=== PATIENT | male | born 1990 | race Caucasian/White ===

== ENCOUNTER 2023-05-15 14:54 | Outpatient (AMB) | payer OTHER, SELFPAY ==
--- NOTE | 2023-05-15 15:06 | MHC.AM.SUB ---
Intake Intake Visit Reasons: mat intake HPI mat intake HPI Details Patient presents for intake and evaluation Has been in recovery for 6 years [facility] --then they closed and then transferred to [facility] Current suboxone dose 6mg -- 1.5 films of 4mg Has been at this dose for almost 6 years Denies any side effects Health History: PCP: [facility] in [place]. Last physical 1-2 years ago No medications taken daily BH: No BH history Social History: -2 kids -engaged lives in [employer] in [email or web address] Substance Use History: -using percocet relationally age 17 -19 transitioned to heroin -IVDU -one lifetime overdose -cocaine IV and inhalation -denies alcohol or benzodiazepines Treatment History: -[facility] admissions [facility] -[facility] admissions X2 most recent one 7 years ago Medication History: Vivitrol No methadone Review of Systems Const Reports as per HPI and Reports no additional complaints Physical Exam Const General: cooperative and healthy appearing Nutritional Appearance: average body habitus Orientation/consciousness: patient oriented x3 Limitations: no limitations Neuro General: patient oriented x3 Results AMB 14 Panel Urine Drug Screen Urine Marijuana (THC) Positive Last Edit by Alcira Patel NP on 05/15/23 15:55 Urine Cocaine Negative Last Edit by Alcira Patel NP on 05/15/23 15:55 Urine Morphine Negative Last Edit by Alcira Patel NP on 05/15/23 15:55 Urine Methamphetamine Negative Last Edit by Alcira Patel NP on 05/15/23 15:55 Urine Amphetamine Negative Last Edit by Alcira Patel NP on 05/15/23 15:55 Urine Benzodiazepine Negative Last Edit by Alcira Patel NP on 05/15/23 15:55 Urine Barbiturates Negative Last Edit by Alcira Patel NP on 05/15/23 15:55 Urine Methadone Negative Last Edit by Alcira Patel NP on 05/15/23 15:55 Urine Buprenorphine Positive Last Edit by Alcira Patel NP on 05/15/23 15:55 Urine Tricyclic Antidepressant Negative Last Edit by Alcira Patel NP on 05/15/23 15:55 Urine MDMA Negative Last Edit by Alcira Patel NP on 05/15/23 15:55 Urine Oxycodone Negative Last Edit by Alcira Patel NP on 05/15/23 15:55 Urine Phencyclidine Negative Last Edit by Alcira Patel NP on 05/15/23 15:55 Urine Propoxyphene Negative Last Edit by Alcira Patel NP on 05/15/23 15:55 Results Reviewed Results Reviewed: Laboratory Last Values POC Urine Buprenorphine Positive 05/15/23 15:49 POC Urine Morphine Negative 05/15/23 15:49 POC Urine Oxycodone Negative 05/15/23 15:49 POC Urine Methadone Negative 05/15/23 15:49 POC Urine Propoxyphene Negative 05/15/23 15:49 POC Urine Barbiturates Negative 05/15/23 15:49 POC U Tricyclic Antidpr Negative 05/15/23 15:49 POC Urine PCP Negative 05/15/23 15:49 POC Ur Amphetamines Negative 05/15/23 15:49 POC Ur Methamphetamine Negative 05/15/23 15:49 POC Urine MDMA Negative 05/15/23 15:49 POC Ur Benzodiazepine Negative 05/15/23 15:49 POC Urine Cocaine Negative 05/15/23 15:49 POC Ur Marijuana (THC) Positive 05/15/23 15:49 Assessment & Plan Assessment & Plan (1) Opioid use disorder, severe, in sustained remission: Code(s): F11.21 - Opioid dependence, in remission Plan: continue suboxone at current dose refill due next week follow up 3 weeks to stay on 4 weeks rx schedule then q 4 week visits Orders: Orders AMB 14 Panel Urine Drug Screen 05/15/23 Z51.81 - Encounter for therapeutic drug level monitoring Coding Level of Care Code New Pt Level 4 (18796) Diagnoses Opioid use disorder, severe, in sustained remission F11.21
== END 2023-05-15 15:59 | disposition home or self-care (01) ==
PROVIDERS: Visit Provider Nurse Practitioner Psychiatric/Mental Health
DX: F11.21 Opioid dependence, in remission (principal)
CPT/HCPCS: 99204

== ENCOUNTER → 2023-05-15 14:54 | Outpatient (BNVA) | payer OTHER, SELFPAY | PROVIDERS: Visit Provider Nurse Practitioner Family | DX: F11.21 Opioid dependence, in remission (principal) | CPT/HCPCS: 80305; 99202 ==

== ENCOUNTER 2023-06-11 13:01 | Outpatient (AMB) | payer OTHER, SELFPAY ==
[2023-06-11 15:39] VITALS: BP 150/85; PULSE 72; RESP 20; O2SAT 98
--- NOTE | 2023-06-11 15:39 | A.OFFVISCC_ITS ---
Intake Vital Signs 06/11/23 15:39 BP 150/85 H Blood Pressure Location Lt brachial Position Sitting Respiration 20 Pulse 72 Pulse Oximetry (%) 98 Oxygen Delivery Method Room Air Intake Visit Reasons: MAT Visit Allergies No Known Allergies Allergy (Verified 06/11/23 14:43) HPI MAT Visit HPI Details Patient presents for follow up No issues related to current dose (has been stable at this dose for several years) Denies side effects No changes with work or family Review of Systems Const Reports as per HPI and Reports no additional complaints Physical Exam Vital Signs: Last Vital Signs Pulse 72 06/11/23 15:39 Resp 20 06/11/23 15:39 BP 150/85 H 06/11/23 15:39 Pulse Ox 98 06/11/23 15:39 Oxygen Delivery Method Room Air 06/11/23 15:39 Const General: cooperative and healthy appearing Nutritional Appearance: average body habitus Orientation/consciousness: patient oriented x3 Limitations: no limitations Neuro General: patient oriented x3 Assessment & Plan Assessment & Plan (1) Opioid use disorder, severe, in sustained remission: Code(s): F11.21 - Opioid dependence, in remission Plan: * continue suboxone at current dose * follow up 4 weeks. --patient traveling for work and will need to fill rx early. rx sent in with note to fill on 06/17 * labs still not received --follow up Medications: Refilled Suboxone 4-1 mg (buprenorphine-naloxone) 1.5 film sublingually daily 45 ea 0RF NS Coding Level of Care Code Est Pt Level 3 (83922) Diagnoses Opioid use disorder, severe, in sustained remission F11.21
== END 2023-06-11 13:27 | disposition home or self-care (01) ==
PROVIDERS: Visit Provider Nurse Practitioner Psychiatric/Mental Health
DX: F11.21 Opioid dependence, in remission (principal)
CPT/HCPCS: 99213

== ENCOUNTER → 2023-06-11 13:01 | Outpatient (BNVA) | payer OTHER, SELFPAY | PROVIDERS: Visit Provider Nurse Practitioner Psychiatric/Mental Health | DX: F11.20 Opioid dependence, uncomplicated (principal) | CPT/HCPCS: 99212 ==

== ENCOUNTER 2023-07-12 14:14 | Outpatient (AMB) | payer OTHER, SELFPAY ==
--- NOTE | 2023-07-12 14:15 | A.OFFVISCC_ITS ---
Intake Vital Signs 07/12/23 14:19 BP 122/78 Blood Pressure Location Lt radial Position Sitting Pulse 92 Pulse Source Pulse Oximeter Pulse Oximetry (%) 97 Oxygen Delivery Method Room Air Intake Visit Reasons: MAT Visit Intake Note: The patient presents for a mat visit Allergies No Known Allergies Allergy (Verified 07/12/23 14:20) Do you need a note to return to daycare/school/sports/work: No HPI MAT Visit HPI Details Patient presents for follow up Work still going okay Saw PCP last week regarding enlarged lymph nodes--awaiting lab work no issues related to recovery--today [birth year] his birthday, dinner with family later tonight Review of Systems Const Reports as per HPI and Reports no additional complaints Physical Exam Vital Signs: Last Vital Signs Pulse 92 07/12/23 14:19 BP 122/78 07/12/23 14:19 Pulse Ox 97 07/12/23 14:19 Oxygen Delivery Method Room Air 07/12/23 14:19 Const General: cooperative and healthy appearing Nutritional Appearance: average body habitus Orientation/consciousness: patient oriented x3 Limitations: no limitations Neuro General: patient oriented x3 Assessment & Plan Assessment & Plan (1) Opioid use disorder, severe, in sustained remission: Code(s): F11.21 - Opioid dependence, in remission Plan: * continue suboxone at current dose * follow up 6 weeks Medications: Refilled Suboxone 4-1 mg (buprenorphine-naloxone) 1.5 film sublingually daily 32 ea 1RF NS Coding Level of Care Code Est Pt Level 3 (36082) Diagnoses Opioid use disorder, severe, in sustained remission F11.21
[2023-07-12 14:19] VITALS: BP 122/78; PULSE 92; O2SAT 97
== END 2023-07-12 14:36 | disposition home or self-care (01) ==
PROVIDERS: Visit Provider Nurse Practitioner Psychiatric/Mental Health
DX: F11.21 Opioid dependence, in remission (principal)
CPT/HCPCS: 99213

== ENCOUNTER → 2023-07-12 14:14 | Outpatient (BNVA) | payer OTHER, SELFPAY | PROVIDERS: Visit Provider Nurse Practitioner Psychiatric/Mental Health | DX: Z51.81 Encounter for therapeutic drug level monitoring (principal); F11.21 Opioid dependence, in remission | CPT/HCPCS: 99212 ==

== ENCOUNTER 2023-08-30 14:34 | Outpatient (AMB) | payer OTHER, SELFPAY ==
--- NOTE | 2023-08-30 14:35 | MHC.AM.SUB ---
Intake Vital Signs 08/30/23 14:39 BP 124/70 Blood Pressure Location Lt radial Position Sitting Pulse 80 Pulse Source Pulse Oximeter Pulse Oximetry (%) 98 Oxygen Delivery Method Room Air Intake Visit Reasons: MAT Intake Note: The patient presents for a mat visit Compliance Project Manager Required: No Allergies No Known Allergies [No Known Allergies*] Allergy (Unverified 08/30/23 14:40) Do you need a note to return to daycare/school/sports/work: No HPI MAT HPI Details Patient presents for MAT visit He reports he has been in recovery for 7 years, has no concerns Has been tolerating 6mg suboxone daily Doing well overall Review of Systems Const Reports as per HPI Physical Exam Vital Signs: Last Vital Signs Pulse 80 08/30/23 14:39 BP 124/70 08/30/23 14:39 Pulse Ox 98 08/30/23 14:39 Oxygen Delivery Method Room Air 08/30/23 14:39 Const General: cooperative and comfortable Resp Effort & Inspection: normal respiratory effort Psych Appearance: grossly normal Mental Status: mental status grossly normal Speech and movement: Normal speech and movement present Affect: normal affect Attitude: cooperative Assessment & Plan Assessment & Plan (1) Opioid use disorder, severe, in sustained remission: Code(s): F11.21 - Opioid dependence, in remission Plan: -No refill needed at this time -Follow up 6 weeks Coding Level of Care Code Est Pt Level 3 (81980) Diagnoses Opioid use disorder, severe, in sustained remission F11.21
[2023-08-30 14:39] VITALS: BP 124/70; PULSE 80; O2SAT 98
== END 2023-08-30 15:00 | disposition home or self-care (01) ==
PROVIDERS: Visit Provider Nurse Practitioner Family
DX: F11.21 Opioid dependence, in remission (principal)
CPT/HCPCS: 99213

== ENCOUNTER → 2023-08-30 14:34 | Outpatient (BNVA) | payer OTHER, SELFPAY | PROVIDERS: Visit Provider Nurse Practitioner Family | DX: F11.21 Opioid dependence, in remission (principal) | CPT/HCPCS: 99212 ==

== ENCOUNTER 2023-10-22 14:15 | Outpatient (AMB) | payer OTHER, SELFPAY ==
[2023-10-22 14:19] VITALS: BP 138/80; PULSE 89; O2SAT 100
--- NOTE | 2023-10-22 14:19 | A.OFFVISCC_ITS ---
Vital Signs 10/22/23 14:19 BP 138/80 Blood Pressure Location Lt brachial Position Sitting Pulse 89 Pulse Source Pulse Oximeter Pulse Oximetry (%) 100 Oxygen Delivery Method Room Air Intake Visit Reasons: MAT Allergies No Known Allergies [No Known Allergies*] Allergy (Unverified 08/30/23 14:40) HPI HPI MAT: Details: Patient presents for OUD (in remission) treatment follow up Currently prescribed Suboxone 4mg (1.5 films QD) No issues to report tolerating medication work is going well Review of Systems Const Reports as per HPI and Reports no additional complaints Physical Exam Vital Signs: Last Vital Signs Pulse 89 10/22/23 14:19 BP 138/80 10/22/23 14:19 Pulse Ox 100 10/22/23 14:19 Oxygen Delivery Method Room Air 10/22/23 14:19 Const General: cooperative and comfortable Resp Effort & Inspection: normal respiratory effort Psych Appearance: grossly normal Mental Status: mental status grossly normal Speech and movement: Normal speech and movement present Affect: normal affect Attitude: cooperative Assessment & Plan Assessment & Plan (1) Opioid use disorder, severe, in sustained remission: Code(s): F11.21 - Opioid dependence, in remission Category: Medical Plan: * no refill due at this time--will message when he needs it * follow up 6 weeks via telehealth and next appt after that in person * encouraged to call office prior to that if needed
== END 2023-10-22 14:34 | disposition home or self-care (01) ==
PROVIDERS: Visit Provider Nurse Practitioner Psychiatric/Mental Health
DX: F11.21 Opioid dependence, in remission (principal)
CPT/HCPCS: 99213

== ENCOUNTER → 2023-10-22 14:15 | Outpatient (BNVA) | payer OTHER, SELFPAY | PROVIDERS: Visit Provider Nurse Practitioner Psychiatric/Mental Health | DX: F11.20 Opioid dependence, uncomplicated (principal) | CPT/HCPCS: 99212 ==

== ENCOUNTER 2023-12-03 10:57 | Outpatient (AMB) | payer OTHER, SELFPAY ==
--- NOTE | 2023-12-03 11:10 | A.OFFVISCC_ITS ---
Intake Visit Reasons: MAT Tele Allergies No Known Allergies [No Known Allergies*] Allergy (Unverified 08/30/23 14:40) HPI HPI MAT Tele: Details: Patient presents for follow up via telehealth No issues related to suboxone --tolerating medication and denies side effects Still working FT. Has settled on a date for his next November Many activities planned for the summer with family and friends Review of Systems Const Reports as per HPI and Reports no additional complaints Telehealth Telehealth Telehealth Platform: Telephone Location of provider rendering services: practice address Location of patient: address on file Patient Identification confirmed using: Name, : Yes Telehealth method: voice only Patient verbally consented to treatment: Yes Patient verbally consented to billing insurance company: Yes Patient informed of any privacy concerns related to visit: Yes Minutes spent on Phone/Video with Pt.: 15 Assessment & Plan Assessment & Plan (1) Opioid use disorder, severe, in sustained remission: Code(s): F11.21 - Opioid dependence, in remission Category: Medical Plan: * Continue suboxone at current dose * follow up 8 weeks * encouraged to call office prior to that if needed
== END 2023-12-03 11:10 | disposition home or self-care (01) ==
PROVIDERS: Visit Provider Nurse Practitioner Psychiatric/Mental Health
DX: F11.21 Opioid dependence, in remission (principal)
CPT/HCPCS: 99213

== ENCOUNTER → 2023-12-03 10:57 | Outpatient (BNVA) | payer OTHER, SELFPAY | PROVIDERS: Visit Provider Nurse Practitioner Psychiatric/Mental Health ==

== ENCOUNTER 2024-01-29 11:05 | Outpatient (AMB) | payer OTHER, SELFPAY ==
--- NOTE | 2024-01-29 11:35 | A.OFFVISCC_ITS ---
Intake Visit Reasons: MAT Office Allergies No Known Allergies [No Known Allergies*] Allergy (Unverified 08/30/23 14:40) HPI HPI MAT Office: Details: Patient presents for followup Currently prescribed Suboxone 4mg 1.5 films daily Tolerating current dose Was sick last month and vomited a couple of doses, concerned he will be short for his next fill Recovery 8 years in April Review of Systems Const Reports as per HPI and Reports no additional complaints Physical Exam Const General: cooperative and comfortable Psych Appearance: grossly normal Mental Status: mental status grossly normal Speech and movement: Normal speech and movement present Affect: normal affect Attitude: cooperative Assessment & Plan Assessment & Plan (1) Opioid use disorder, severe, in sustained remission: Code(s): F11.21 - Opioid dependence, in remission Category: Medical Plan: * Continue suboxone at current dose * follow up 3 months * encouraged to call office prior to that if needed Medications: Changed From Suboxone 4-1 mg (buprenorphine-naloxone) 1.5 film sublingually daily 45 ea 1RF NS To Suboxone 4-1 mg (buprenorphine-naloxone) 1 film sublingual BID 60 ea 2RF NS Refilled Suboxone 4-1 mg (buprenorphine-naloxone) 1 film sublingual BID 60 ea 2RF NS
== END 2024-01-29 11:36 | disposition home or self-care (01) ==
PROVIDERS: Visit Provider Nurse Practitioner Psychiatric/Mental Health
DX: F11.21 Opioid dependence, in remission (principal)
CPT/HCPCS: 99214

== ENCOUNTER → 2024-01-29 11:05 | Outpatient (BNVA) | payer OTHER, SELFPAY | PROVIDERS: Visit Provider Nurse Practitioner Psychiatric/Mental Health | DX: F11.21 Opioid dependence, in remission (principal); Z51.81 Encounter for therapeutic drug level monitoring | CPT/HCPCS: 99212 ==

== ENCOUNTER 2024-04-22 09:07 | Outpatient (AMB) | payer OTHER, SELFPAY ==
--- NOTE | 2024-04-22 08:40 | MHC.AM.SUB ---
Intake Visit Reasons: MAT Tele Allergies No Known Allergies [No Known Allergies*] Allergy (Unverified 08/30/23 14:40) [facility] MAT Tele: Details: Patient presents for follow up via telehealth Currently prescribed Suboxone 4mg BID Tolerating current dose No issues related to recovery Mass discovered in throat--found to be benign --being followed by ENT Review of Systems Const Reports as per [facility] Telehealth Telehealth Telehealth Platform: Telephone Location of provider rendering services: practice address Location of patient: other Patient Identification confirmed using: Name, : Yes Telehealth method: voice only Patient verbally consented to treatment: Yes Patient verbally consented to billing insurance company: Yes Patient informed of any privacy concerns related to visit: Yes Minutes spent on Phone/Video with Pt.: 15 Assessment & Plan Assessment & Plan (1) Opioid use disorder, severe, in sustained remission: Code(s): F11.21 - Opioid dependence, in remission Category: Medical Plan: continue suboxone at current dose follow up 2 months via telehealth, then next appt in office refill sent Medications: Refilled Suboxone 4-1 mg (buprenorphine-naloxone) 1 film sublingual BID 60 ea 2RF NS
== END 2024-04-22 09:09 | disposition home or self-care (01) ==
LOC: HO.HCC 09:08
PROVIDERS: Visit Provider Nurse Practitioner Psychiatric/Mental Health
DX: F11.21 Opioid dependence, in remission (principal)
CPT/HCPCS: 99213

== ENCOUNTER 2024-07-24 08:49 | Outpatient (AMB) | payer OTHER, SELFPAY ==
--- NOTE | 2024-07-24 08:50 | A.OFFVISCC_ITS ---
Intake Visit Reasons: MAT Visit Allergies No Known Allergies [No Known Allergies*] Allergy (Unverified 08/30/23 14:40) HPI HPI MAT Visit: Details: Patient presents for follow up via telehealth Currently prescribed Suboxone 4mg BID Tolerating dose Denies side effects Some issues with insurance last month, resolved since Review of Systems Const Reports as per HPI and Reports no additional complaints Telehealth Telehealth Telehealth Platform: Telephone Location of provider rendering services: practice address Location of patient: address on file Patient Identification confirmed using: Name, : Yes Telehealth method: voice only Patient verbally consented to treatment: Yes Patient verbally consented to billing insurance company: Yes Minutes spent on Phone/Video with Pt.: 13 Assessment & Plan Assessment & Plan (1) Opioid use disorder, severe, in sustained remission: Code(s): F11.21 - Opioid dependence, in remission Category: Medical Plan: * continue suboxone at current dose * follow up 4 months * will send message via portal when refill is needed
--- OUTSIDE RECORDS SUMMARY | 2024-07-24 09:05 | XMS_ITS | Encounter Summary ---
Author Organization [facility] Address [address] [place] [address] Care Team Providers Care Lead Burner Name Role Phone Rashid Marin MD Primary Care Provider Reason for Referral * Imaging (Routine) - Pending Review Specialty Diagnoses / Procedures Referred By Frank bonner Referred To Contact Radiology Diagnoses Epididymitis, right Lump in the testicle Procedures US Scrotum and Contents Heidi Motley NP [address] [place] [address] Phone: tel: fax: [address] Phone: tel: Referral ID Status Reason Start Date Expiration Date V isits Requested Visits Authorized [id number] Pending Review 07/02/2024 07/02/2025 1 1 Reason for Visit * Imaging (Routine) - Pending Review Specialty Diagnoses / Procedures Referred By Frank bonner Referred To Contact Radiology Diagnoses Epididymitis, right Lump in the testicle Procedures US Scrotum and Contents Heidi Motley NP [address] [place] [address] Phone: tel: fax: [address] Phone: tel: Referral ID Status Reason Start Date Expiration Date V isits Requested Visits Authorized [id number] Pending Review 07/02/2024 07/02/2025 1 1 Encounter Details Date Type Department Care Team (Latest Contact Info) Description 07/02/2024 10:41 AM EST - 07/02/2024 11:59 PM EST Hospital Encounter Radiology Department [address] [phone] Lump in the testicle Discharge Disposition: Home or Self Care Social History Tobacco Use Types Packs/Day Years Used Date Smoking Tobacco: Light Smoker Cigarettes Smokeless Tobacco: Never Alcohol Use Standard Drinks/Week Comments Yes 0 (1 standard drink = 0.6 oz pur e alcohol) Sex and Gender Information Value Date Recorded Sex Assigned at Not on file Legal Sex Male 2:19 PM EST Gender Identity Not on file Sexual Orientation Not on file documented as of this encounter Medications at Time of Discharge buprenorphine-nal oxone (SUBOXONE) 4-1 mg per SL film Place under the tongue. doxycycline (VIBRAMYCIN) 100 mg capsuleIndication s:Epididymitis, right Take 1 capsule (100 mg total) by mouth 2 (two) times a day for 10 days. Take with at least 8 ounces (large glass) of water, do not lie down for 30 minutes after 20 each 07/02/2024 2024 documented as of this encounter Discharge Disposition Disposition Code Departure Means Destination Home or Self Care documented in this encounter Plan of Treatment Not on file documented as of this encounter Procedures Procedure Name Priority Date/Time Associated Diagnosis Comments US SCROTUM AND CONTENTS Routine 07/02/2024 11:10 AM EST Lump in the testicle documented in this encounter Results * US Scrotum and Contents (07/02/2024 11:10 AM EST) Anatomical Region Laterality Modality Body Ultrasound 07/02/2024 11:3 8 AM EST Impressions 07/02/2024 11:43 AM EST Enlarged hypervascular right epididymis consistent with epididymitis. Clinical correlation suggested. -------- FINAL REPORT -------- Dictated By: Fanny Angel Dictated Date: 07/02/2024 11:38 ET Assigned Physician: Fanny Angel Reviewed and Electronically Signed By: Fanny Angel Signed Date: 07/02/2024 11:43 ET Workstation ID: [id number] Transcribed By: Self Edit Transcribed Date: 07/02/2024 11:38 ET Narrative 07/02/2024 11:43 AM EST US SCROTUM AND CONTENTS HISTORY: ??Lump noted in the right scrotum. FINDINGS: ??Both testicles demonstrate normal echotexture. ??The right testicle measures 4.2 x 1.8 x 2.9 cm. The left testicle measures 3.0 x 1.7 x 2.9 cm. ?? The right epididymis is enlarged and demonstrates increased blood flow. There is a 0.2 x 0.1 x 0.1 cm right epididymal head cyst. No large hydrocele is seen. The testicles demonstrate normal symmetric blood flow on Doppler imaging. Procedure Note Fanny Angel MD - 07/02/2024 US SCROTUM AND CONTENTS HISTORY: Lump noted in the right scrotum. FINDINGS: Both testicles demonstrate normal echotexture. The righttesticle measures 4.2 x 1.8 x 2.9 cm. The left testicle measures 3.0 x 1.7x 2.9 cm. The right epididymis is enlarged and demonstrates increased blood flow. There is a 0.2 x 0.1 x 0.1 cm right epididymal head cyst. No large hydrocele is seen. The testicles demonstrate normal symmetricblood flow on Doppler imaging. IMPRESSION: Enlarged hypervascular right epididymis consistent with epididymitis.Clinical correlation suggested. -------- FINAL REPORT -------- Dictated By: Fanny Angel Dictated Date: 07/02/2024 11:38 ET Assigned Physician: Fanny Angel Reviewed and Electronically Signed By: Fanny Angel Signed Date: 07/02/2024 11:43 ET Workstation ID: [id number] Transcribed By: Self Edit Transcribed Date: 07/02/2024 11:38 ET us Heidi Motley REPORTER ANCHOR IMG US PROCEDURES Final Resu lt documented in this encounter Visit Diagnoses Diagnosis Lump in the testicle Other specified disorder of male genital organs documented in this encounter Care Teams Lead Burner Relationship Specialty Start Date End Date Rashid Marin MD [address] [place] [address] PCP - General 07/24/22 documented as of this encounter
--- OUTSIDE RECORDS SUMMARY | 2024-07-24 09:05 | XMS_ITS | Encounter Summary ---
Author Organization [facility] Address [address] [place] [address] Care Team Providers Care Pharmaceutical Process Engineer Name Role Phone Rashid Marin MD Primary Care Provider Reason for Referral * Consultation (Routine) - Authorized Specialty Diagnoses / Procedures Referred By Frank bonner Referred To Contact Urology Diagnoses Lump in the testicle Heidi Motley NP [address] [place] [address] Phone: tel: fax: [facility] [address] [address] Phone: tel: fax: Referral ID Status Reason Start Date Expiration Date Visits Requested Visits Authorized [id number] Authorized Specialty Services Required 07/02/2024 07/02/2025 1 1 * Imaging (Routine) - Pending Review Specialty Diagnoses / Procedures Referred By Contdillon t Referred To Contact Radiology Diagnoses Epididymitis, right Lump in the testicle Procedures US Scrotum and Contents Heidi Motley NP [address] [place] [address] Phone: tel: fax: [address] Phone: tel: Referral ID Status Reason Start Date Expiration Date V isits Requested Visits Authorized [id number] Pending Review 07/02/2024 07/02/2025 1 1 Reason for Visit * Reason Comments Mass Genital area Encounter Details Date Type Department Care Team ([facility] st Contact Info) Description 07/02/2024 10:00 AM EST Office Visit [place] Medicine [facility] [address], [place] [phone] Heidi Motley NP [address], [place] Epididymitis, right (Primary Dx); Lump in the testicle Social History Tobacco Use Types Packs/Day Years [...] on file documented as of this encounter Last Filed Vital Signs Vital Sign Reading Time Taken Comments Blood Pressure 110/64 07/02/2024 10:19 AM EST Pulse 76 07/02/2024 10:19 AM EST Temperature 36.8 ??C (98.2 ??F) 07/02/2024 10:[address] Respiratory Rate 14 07/02/2024 10:19 AM EST Oxygen Saturation 98% 07/02/2024 10:19 AM EST Inhaled Oxygen Concentration - - Weight 73.2 kg (161 lb 6.4 oz) 07/02/2024 10:19 AM EST Height 188 cm (6' 2 ) 07/02/2024 10:19 AM EST Body Mass Index 20.72 07/02/2024 10:19 AM EST documented in this encounter Ordered Prescriptions Prescription Sig Dispense Quantity Refills Last Filled Start Date End Date doxycycline (VIBRAMYCIN) 100 mg capsuleIndications :Epididymitis, right Take 1 capsule (100 mg total) by mouth 2 (two) times a day for 10 days. Take with at least 8 ounces (large glass) of water, do not lie down for 30 minutes after 20 each 07/02/2024 documented in this encounter Progress Notes * Heidi Motley NP - 07/02/2024 10:00 AM EST PATIENT'S PCP: Rashid Marin MD LAST VISIT IN THIS DEPARTMENT: Visit date not found Juventino Flor is a 33 y.o. (: 1990) male who presents today for: Chief Complaint Patient presents with Mass Genital area SUBJECTIVE Juventino is a 33 year old male who present with right scrotum mass. Patient stated he notice the lump/mass 2 days ago. He denied pain, swelling, or penile discharge No fever or chills. No family historyof of testicular cancer. ROS Review of Systems Constitutional: Negative. Gastrointestinal: Negative. Genitourinary: Negative. Negative for penile discharge, penile pain, penile swelling, scrotal swelling and testicular pain. Patient report lump/mass in the right posterior testes. Musculoskeletal: Negative. Skin: Negative. Neurological: Negative. Hematological: Negative. The following portions of the patient's chart were reviewed in this encounter and updated as appropriate: OBJECTIVE Vitals: 07/02/24 1019 BP: 110/64 Pulse: 76 Resp: 14 Temp: 36.8 ??C (98.2 ??F) TempSrc: Temporal SpO2: 98% Weight: 73.2 kg (161 lb 6.4 oz) Height: 1.88 m (74 ) Body mass index is 20.72 kg/m??. Plan is deferred until next visit Allergies Allergen Reactions Cyclobenzaprine Rash Naproxen GI intolerance Active Medication: Current Outpatient Medications Medication Instructions buprenorphine-naloxone (SUBOXONE) 4-1 mg per SL film sublingual doxycycline (VIBRAMYCIN) 100 mg, oral, 2 times daily, Take with at least 8 ounces (large glass) of water, do not lie down for 30 minutes after Physical Exam Vitals reviewed. Constitutional: Appearance: Normal appearance. Abdominal: General: Bowel sounds are normal. Palpations: Abdomen is soft. Genitourinary: Penis: Normal and circumcised. Testes: Right: Mass present. Tenderness, swelling, testicular hydrocele or varicocele not present. Left: Mass, tenderness, swelling, testicular hydrocele or varicocele not present. Epididymis: Right: Normal. Left: Normal. Musculoskeletal: General: Normal range of motion. Skin: General: Skin is warm and dry. Neurological: General: No focal deficit present. Mental Status: He is alert. Mental status is at baseline. Imaging US SCROTUM AND CONTENTS HISTORY: Lump noted in the right scrotum. FINDINGS: Both testicles demonstrate normal echotexture. The right testicle measures 4.2 x 1.8 x 2.9 cm. The left testicle measures 3.0 x 1.7 x 2.9 cm. The right epididymis is enlarged and demonstrates increased blood flow. There is a 0.2 x 0.1 x 0.1 cm right epididymal head cyst. No large hydrocele is seen. The testicles demonstrate normal symmetric blood flow on Doppler imaging. IMPRESSION: Enlarged hypervascular right epididymis consistent with epididymitis. Clinical correlation suggested. Laboratory: CBC: No results found for: WBC , HGB , HCT , MCV , PLT Assessment & Plan Epididymitis, right Patient presents with lump/mass to the right posterior scrotum. No tenderness or pain noted. Patient is sexually active with 1 partner his . Ultrasound completed and showed epididymitis I will start patient on ceftriaxone 500 mg IM injection times once and doxycycline twice daily for 10 days. Discussed results with patient and patient is agreeable to plan. He will return to the office for nurse visit at 230 pm. Orders: US Scrotum and Contents; Future cefTRIAXone (ROCEPHIN) injection 500 mg doxycycline (VIBRAMYCIN) 100 mg capsule; Take 1 capsule (100 mg total) by mouth 2 (two) times a dayfor 10 days. Take with at least 8 ounces (large glass) of water, do not lie down for 30 minutes after Lump in the testicle See above plan Orders: US Scrotum and Contents; Future Ambulatory referral to Urology; Future FOLLOW-UP: Follow up in about 1 year (around 07/02/2025) for Please book with care team. Heidi Motley NP ADULT [address] [phone] Today's documentation was made using voice recognition software.This note may contain grammatical errors secondary to this software. documented in this encounter Plan of Treatment Scheduled Referrals Name Type Priority Associated Diagnoses Order Schedule Ambulatory referral to Urology Outpatient Referral Routine Lump in the testicle 1 Occurrences starting 07/02/2024 until 07/02/2025 documented as of this encounter Results * US Scrotum and [...] Signed Date: 07/02/2024 11:43 ET Workstation ID: [id number] Transcribed By: Self Edit Transcribed Date: 07/02/2024 [...] Signed Date: 07/02/2024 11:43 ET Workstation ID: [id number] Transcribed By: Self Edit Transcribed Date: 07/02/2024 11:38 ET us Heidi Motley [employer] CERTIFIED INTERNETWORK EXPERT IMG US PROCEDURES Final Resu lt documented in this encounter Visit Diagnoses Diagnosis Epididymitis, right- Primary Unspecified orchitis and epididymitis Lump in the testicle Other specified disorder of male genital organs Lump in the testicle Other specified disorder of male genital organs documented in this encounter Orders Medications Ordered That Sameer ht Not Have Been Administered Count Last Ordered Date First Ordered Date cefTRIAXone (ROCEPHIN) injection 500 mg 1 0 07/02/2024 documented in this encounter Care Teams Pharmaceutical Process Engineer Relationship Specialty Start Date End Date Rashid Marin MD [address] [place] [address] PCP - General 07/24/22 documented as of this encounter
--- OUTSIDE RECORDS SUMMARY | 2024-07-24 09:05 | XMS_ITS | Encounter Summary ---
Author Organization [facility] Address [address] [place] [address] Care Team Providers Care Cooler Supervisor Name Role Phone Rashid Marin MD Primary Care Provider Reason for Visit * Reason Onset Date Comments provider call back 07/02/2024 Encounter Details Date Type Department Care Team (Late st Contact Info) Description 07/02/2024 Telephone Adult Medicine [facility] [address] [place] [phone] Rashid Marin MD [address] [place], [place] provider call back Social History Tobacco Use Types Packs/Day Years [...] on file documented as of this encounter Progress Notes * Heidi Motley NP - 07/08/2024 6:21 PM EST Attempt to call the patient back. Left message for patient to call the office back. * Therese Wolf - 07/08/2024 10:32 AM EST Patient calling again for a provider call back hugh * Ju Ramirez MA - 07/03/2024 9:55 AM EST Pt called again today, states he was told to come back yesterday for an injection and did, but has questions as to the dx of Epididymitis. Would like for provider to call back. * Letty Shah - 07/02/2024 2:41 PM EST Patient would like to speak with Consuelo Motley. He says he has a couple questions for her documented in this encounter Plan of Treatment Not on file documented as of this encounter Visit Diagnoses Not on filedocumented in this encounter Care Teams Cooler Supervisor Relationship Specialty Start Date End Date Rashid Marin MD [address] [place] [address] PCP - General 07/24/22 documented as of this encounter
--- OUTSIDE RECORDS SUMMARY | 2024-07-24 09:05 | XMS_ITS | Clinical Summary ---
Author Organization [address] Address [address] [place] [phone] Phone Care Team Providers Care Global Account Manager Name Role Phone Rashid Marin MD Primary Care Provider Allergies Active Allergy Reactions Criticality Noted Date Comments Cyclobenzaprine Rash Medium 03/26/2014 Naproxen GI intolerance Medium 03/26/2014 Medications buprenorphine-n aloxone (SUBOXONE) 4-1 mg per SL film Place under the tongue. Active doxycycline (VIBRAMYCIN) 100 mg capsuleIndicati ons:Epididymiti s, right Take 1 capsule (100 mg total) by mouth 2 (two) times a day for 10 days. Take with at least 8 ounces (large glass) of water, do not lie down for 30 minutes after 20 each 07/02/2024 07/12/19 25 Hospital, Clinic, or Other Facility Administered Medication Ordered Dose Route Frequency Start Date End Date Status cefTRIAXone (ROCEPHIN) injection 500 mgIndications:Epididymitis, right 500 mg IM Once 07/02/2024 10/30/2024 Active Active Problems Problem Noted Date Diagnosed Date Gastroesophageal reflux disease without esophagi tis 04/01/2019 Anxiety 02/16/2019 Opioid dependence 02/14/2019 Overview (05/28/2024): Follow with Suboxone treatment program since 2018 Lumbar disc herniation 04/23/2014 Encounters Date Type Department Care Team Description 07/02/2024 10:41 AM EST - 07/02/2024 11:59 PM EST Hospital Encounter Radiology Department - [address] [phone] Lump in the testicle Discharge Disposition: Home or Self Care 07/02/2024 10:00 AM EST Office Visit Adult Medicine [address] [phone] Heidi Motley NP Epididymitis, right (Primary Dx); Lump in the testicle 07/02/2024 Telephone Adult [address] [phone] Rashid Marin MD provider call back from Last 3 Months Immunizations Name Administration Dates Next Due Tdap Tetanus diptheria acell ular pertussis (Boostrix; Adacel) 7yo and older 12/14/2013 Surgical History Surgery Date Site/Laterality Comments OTHER SURGICAL HISTORY 06/11/13 PROCEDURE: [place] UNLISTED PROCEDURE SPINE; COMMENT: L5-S1 disectomy Medical History Medical History Date Comments Lumbar radiculopathy 04/23/2014 DX:Lumbar r adiculopathy Lumbar disc herniation 04/23/2014 DX:Lumbar disc herniation History of lumbosacral spine surgery 06/16/2014 DX:History of lumbosacral spine surgery Family History Medical History Relation Name Comments Heart attack Maternal Grandfather Relation Name Status Comments Brother Alive Father Alive Maternal Grandfather Mother Alive Sister Alive Social History Tobacco Use Types Packs/Day Years Used Date Smoking Tobacco: Light Smoker Cigarettes Smokeless Tobacco: Never Alcohol Use Standard Drinks/Week Comments Yes 0 (1 standard drink = 0.6 oz pur e alcohol) Sex and Gender Information Value Date Recorded Sex Assigned at Not on file Legal Sex Male 2:19 PM EST Gender Identity Not on file Sexual Orientation Not on file Obstetrics History Last Filed Vital Signs Vital Sign Reading [...] Mass Index 20.72 07/02/2024 10:19 AM EST Plan of Treatment Health Maintenance Due Date Last Done Comments Hepatitis B Vaccines (1 of 3 - 19+ 3-dose series) 2007 Pneumococcal Vaccine: Pediat rics (0 to 5 Years) and At-Risk Patients (6 to 64 Years) (1 of 2 - PCV) 2007 HIV Screening 05/19/2022 Hepatitis C Screening 05/19/2022 Social Influencers of Health Screening 05/19/2022 DTaP,Tdap,and Td Vaccines (2 - Td or Tdap) 12/15/2023 12/14/2013 COVID-19 Vaccine ( - 2023-2 5 season) 2024 Influenza Vaccine (#1) 2024 Depression Screening 07/05/2024 07/05/2023 Cholesterol Screening (Lipid Panel) 08/07/2027 08/07/2022 HIB Vaccines Aged Out No longer eligi ble based on patient's age to complete this topic HPV Vaccines Aged Out No longer eligi ble based on patient's age to complete this topic Hepatitis A Vaccines Aged Out No long er eligible based on patient's age to complete this topic IPV Vaccines Aged Out No longer eligi ble based on patient's age to complete this topic MMR Vaccines Aged Out No longer eligi ble based on patient's age to complete this topic Meningococcal ACWY Vaccine Aged Out N o longer eligible based on patient's age to complete this topic Meningococcal B Vacine Aged Out No lo nger eligible based on patient's age to complete this topic RSV Immunization Patients Un kathy 20 months Aged Out No longer eligible b ased on patient's age to complete this topic Varicella Vaccines Aged Out No longer eligible based on patient's age to complete this topic Procedures Procedure Name Priority Date/Time Associated Diagnosis Comments US SCROTUM AND CONTENTS Routine 07/02/2024 11:10 AM EST Lump in the testicle HM DEPRESSION SCREENING Routine 07/05/2023 LIPID PANEL Routine 08/07/2022 from Last 3 Months or Most Recently Relevant to Health Maintenance Results * US Scrotum and Contents (07/02/2024 [...] Signed Date: 07/02/2024 11:43 ET Workstation ID: [id number] Transcribed By: Self Edit Transcribed Date: 07/02/2024 [...] suggested. -------- FINAL REPORT -------- Dictated By: Fnany Angel Dictated Date: 07/02/2024 11:38 ET Assigned Physician: Fanny Angel Reviewed and Electronically Signed By: Fanny Angel Signed Date: 07/02/2024 11:43 ET Workstation ID: [id number] Transcribed By: Self Edit Transcribed Date: 07/02/2024 11:38 ET Heidi Motley SUPERINTENDENT METERS IMG US PROCEDURES Final Resu lt * Depression Screening (07/05/2023) Pathologist [facility] Depression Screening abstracted Historical Provider HEALTH MAINTENANCE Final Result * (ABNORMAL) Lipid panel (08/07/2022) LDL/HDL Ratio 3 0 - 4 Triglycerides 105 0 - 150 mg/dL Cholesterol 92 0 - 200 mg/dL HDL 29(A) >=40 mg/dL LDL Cholesterol 42 0 - 100 mg/dL Blood Venous blood specimen / Unknown Historical Provider LAB BLOOD ORDERABLES Kym l Result from Last 3 Months or Most Recently Relevant to Health Maintenance Insurance [facility] Care Teams Global Account Manager Relationship Specialty Start Date End Date Rashid Marin MD [address] [place] [address] PCP - General 07/24/22
--- OUTSIDE RECORDS SUMMARY | 2024-07-24 09:05 | XMS_ITS | Data Portability ---
Author Organization [place] [facility], [facility] Address [address] [place] [phone] Care Team Providers Care Rag Willow Operator Name Role Phone EDWINA SMITH Primary Care Provider Assessment Encounter Date Assessment Date Assessment LastModified by Organization Details LastModified Time 03/20/2024 03/20/2024 Concerning mass right base of tongue noted on CT study shows approximately 2-1/2 cm mass in the base of tongue without any cervical adenopathy. Fiberoptic laryngoscopy today shows mild lingual tonsil hypertrophy that is symmetric without any obvious asymmetry or mass. Nasopharynx with minimal adenoid tissue in the midline . onset was associated with a dental infection that was treated with antibiotics shortly after his symptoms developed. He does feel some improvement in his symptoms over time Discussed differential diagnosis of benign as well as malignant conditions. Recommend proceed with [facility] laryngoscopy with biopsy vs repeat exam in office in a month. Patient is agreeable to following up in 1 month for repeat fiberoptic laryngoscopy. [email or web address] Not available 03/20/2024 11:22:14 04/08/2024 04/08/2024 Base of tongue biopsies are benign. Fiberoptic laryngoscopy was also unremarkable previously. No specific intervention is needed, he may follow-up as needed [email or web address] Not available 04/08/2024 11:59:28 Plan of Treatment Reminders Order Date Submit Date Provider Last Modified By Organization Details Last Modified Time Details Appointments None record ed. Lab None record ed. Referral None record ed. Procedures None record ed. Surgeries None record ed. Imaging None record ed. Medication Orders None record ed. Patient TargetsNo targets recorded. Patient InstructionsNo instructions recorded. Reason for Referral None Reported. Results Created Date Observation Date Name Description Value Unit Range Abnormal Flag Note LastModifiedBy Organization Detail LastModifiedTime 03/18/2003/13/2024 CT, neck, soft tissu e, w/ contr ast No observ ation record ed. [email or web address] Not Available 03/18 10:54:03 03/18/2002/24/2024 XR, neck, soft tissu e No observ ation record ed. [email or web address] Not Available 03/18 10:54:59 04/02/2003/31/2024 clini kristina photo * No observ ation record ed. [email or web address] Not Available 03/11 08:41:53 Result Notes None recorded. 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 Procedures Surgical History Date Name Laterality Status Provider Name and Address Organization Details Recorded Time 03/31/20 Laryngoscopy w/bx & op scope completed KRISTEL TATE MD [address] [place] [address], [phone], [facility] 03/31/2024 15:34:23 03/20/20 FOL_DP completed DOLORES CABRERA MD [address] [place] [address],[address], [phone], [facility] 03/20/2024 11:18:37 Imaging Results Imaging Date Name Status LastModified by Organiz atcounts include 234 beds at the [facility] Details LastModified Time 03/13/2024 CT, neck, soft tissue, w/ contrast completed [email or web address] Information not available 03/18/2024 10:54:03 02/24/2024 XR, neck, soft tissue completed [email or web address] Information not available 03/18/2024 10:54:59 03/31/2024 clinical photo* completed [email or web address] Information not available 04/02/2024 08:41:53 Procedure Notes None recorded. Medical Equipment None Reported. Allergies No known drug allergies Medications Name Sig Start Date Stop Date Status Note LastModified by Organization Details LastModified Time ibuprofen 800 mg tablet 03/20 completed Not Available Not Available Not Available nicotine (polacrilex ) 4 mg gum 03/20 completed Not Available Not Available Not Available amoxicillin 875 mg-potassiu m clavulanate 125 mg tablet active Not Available Not Available Not Available Suboxone 4 mg-[address] 1 film every day by sublingua l route. active Not Available Not Available No t Available Vitals Date Recorded Body height Body mass index (BMI) Body weight Provider Name and Address Organization Details Last Updated DateTime 03/20/2024 187.96 cm 20.8 kg/m2 10320.96 g Ashley Reese [facility] 03/20/2024 10:55:48 Date Recorded Body height Body mass index (BMI) Body weight Provider Name and Address Organization Details Last Updated DateTime 04/08/2024 187.96 cm 20.8 kg/m2 09081.96 g Patricia Castellanos [facility] 04/08/2024 11:41:18 Social History None recorded. Functional Status None recorded. Mental Status None recorded. Family History Nothing Reported. Medical History No medical history recorded. 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 76032457 D37.02 Health Concerns Section Related Observation LastModified by Organization Detai ls LastModified Time None Recorded Concern Status LastModified by Organization Details LastModified Time None Recorded Advance Directives Directive None Recorded Payers Encounter Date Sequence Insurance Name Policy Number Policy West Covered Member ID West Member ID Guarantor Name 03/20/2024 1 [facility] (MEDICAID REPLACEMENT - HMO) [employer] Juventino A Coulombe [id number] Juventino A Coulombe 04/08/2024 1 [facility] (MEDICAID REPLACEMENT - HMO) [employer] Juventino A Coulombe [id number] Juventino A Coulombe Notes Date Note Type Note Provider Name and Address Organization Details Recorded Time 03/20/2024 text/html escorted by james cameron tongue massOnset early February right-sided globus sensationwas associated with a tooth infection and being treated with PO abxDenies dysphagia for liquids and solidsTobacco 1 pack/daydenies hemoptysishas baseline anxiety 03/13/2024 CT neck with IV and oral contrast at [facility]23 x 24 x 12 mm lobulated enhancing mass posterior base of tongue, prominent adenoid tissue. 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23 x 24 x 12 mm lobulated enhancing mass posterior base of tongue, prominent adenoid tissue. 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
== END 2024-07-24 09:26 | disposition home or self-care (01) ==
LOC: HO.HCC 08:49
PROVIDERS: Visit Provider Nurse Practitioner Psychiatric/Mental Health
DX: F11.21 Opioid dependence, in remission (principal)
CPT/HCPCS: 99213

== ENCOUNTER → 2024-07-24 08:49 | Outpatient (BNVA) | payer OTHER, SELFPAY | PROVIDERS: Visit Provider Nurse Practitioner Psychiatric/Mental Health ==

== ENCOUNTER 2024-08-05 08:54 | Outpatient (AMB) | payer OTHER, SELFPAY ==
--- NOTE | 2024-08-05 08:50 | A.OFFVISCC_ITS ---
Intake Visit Reasons: MAT Allergies No Known Allergies [No Known Allergies*] Allergy (Unverified 08/30/23 14:40) HPI HPI MAT: Details: Patient presents for follow up via telehealth to discuss transitioning to Sublocade Discussed injection, frequency, side effects, expected outcomes Patient would like to use injection as a way to taper off of buprenorphine Review of Systems Const Reports as per HPI and Reports no additional complaints Telehealth Telehealth Telehealth Platform: Telephone Location of provider rendering services: practice address Location of patient: address on file Patient Identification confirmed using: Name, : Yes Telehealth method: voice only Patient verbally consented to treatment: Yes Patient verbally consented to billing insurance company: Yes Minutes spent on Phone/Video with Pt.: 15 Assessment & Plan Assessment & Plan (1) Opioid use disorder, severe, in sustained remission: Code(s): F11.21 - Opioid dependence, in remission Category: Medical Plan: * continue suboxone at current dose * rx for injeciton send to specialty pharmacy--will start at 100mg. Aware that he can transition to 300mg if needed * RN to schedule injection when it arrives
--- OUTSIDE RECORDS SUMMARY | 2024-08-05 09:43 | XMS_ITS | Encounter Summary ---
Author Organization [facility] Address [address] [place] [address] Care Team Providers Care Getter Welder Name Role Phone Rashid Marin MD Primary Care Provider Reason for Visit * Reason Onset Date Comments provider call back 07/02/2024 Encounter Details Date Type Department Care Team (Late st Contact Info) Description 07/02/2024 Telephone Adult Medicine [facility] [address] [place] [address] Rashid Marin MD [address], [place] provider call back Social History Tobacco [...] on filedocumented in this encounter Care Teams Getter Welder Relationship Specialty Start Date End Date Rashid Marin MD [address] [place] [address] PCP - General 07/24/22 documented as of this encounter
--- OUTSIDE RECORDS SUMMARY | 2024-08-05 09:43 | XMS_ITS | Data Portability ---
Author Organization [place] [facility], Allergy Address [address] [place] [phone] Care Team Providers Care Remote Sensing Engineer Name Role Phone EDWINA SMITH Primary Care [...] contr ast No observ ation record ed. [email or web address] Not Available 03/18 10:54:03 03/18/2002/24/2024 XR, neck, soft tissu e No observ ation record ed. [email or web address] Not Available 03/18 10:54:59 04/02/2003/31/2024 clini kristina photo * No observ ation record ed. [email or web address] Not Available 03/11 08:41:53 Result Notes None recorded. 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 Procedures Surgical History Date Name Laterality Status Provider Name and Address Organization Details Recorded Time 03/31/20 Laryngoscopy w/bx & op scope completed KRISTEL TATE MD [address] [place] [address], [phone], [facility] 03/31/2024 15:34:23 03/20/20 FOL_DP completed DOLORES CABRERA MD [address] [place] [address],[address], [phone], [facility] 03/20/2024 11:18:37 Imaging Results Imaging Date Name Status LastModified by [facility] Details LastModified Time 03/13/2024 CT, neck, soft tissue, w/ contrast completed [email or web address] Information not available 03/18/2024 10:54:03 02/24/2024 XR, neck, soft tissue completed [email or web address] Information not available 03/18/2024 10:54:59 03/31/2024 clinical [...] Updated DateTime 03/20/2024 187.96 cm 20.8 kg/m2 19730.96 g Ashley Reese [facility] 03/20/2024 10:55:48 Date Recorded Body height Body mass index (BMI) Body weight Provider Name and Address Organization Details Last Updated DateTime 04/08/2024 187.96 cm 20.8 kg/m2 45829.96 g Patricia Castellanos [facility] 04/08/2024 11:41:18 Social History None recorded. Functional Status None recorded. Mental Status None recorded. Family History Nothing Reported. Medical History No medical history recorded. 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 84174632 D37.02 Health Concerns Section Related Observation LastModified by Organization Detai ls LastModified Time None Recorded Concern Status LastModified by Organization Details LastModified Time None Recorded Advance Directives Directive None Recorded Payers Encounter Date Sequence Insurance Name Policy Number Policy West Covered Member ID West Member ID Guarantor Name 03/20/2024 1 [facility] (MEDICAID REPLACEMENT - HMO) [place] Juventino A Coulombe [id number] Juventino A Coulombe 04/08/2024 1 [facility] (MEDICAID REPLACEMENT - HMO) [employer] Juventino A Coulombe [id number] Juventino A Coulombe Notes Date Note Type Note Provider Name and Address Organization Details Recorded Time 03/20/2024 text/html escorted by james cameron tongue massOnset early February right-sided globus sensationwas associated with a tooth infection and being treated with PO abxDenies dysphagia for liquids and solidsTobacco 1 pack/daydenies hemoptysishas baseline anxiety 03/13/2024 CT neck with IV and oral contrast at [facility]23 x 24 x 12 mm lobulated enhancing mass posterior base of tongue, prominent adenoid tissue. No adenopathy.02/24/2024 x-ray neck at [facility] normal work - quality systems engineer, [employer] DOLORES CABRERA MD [address] [place] [address], [phone], [place] [facility] 03/20/2024 11:22:30 04/08/2024 text/html escorted by james of tongue mass 03/31/24 microDL bx, [facility], [facility] - benign left and right base of tongue 03/13/2024 CT neck with IV and oral contrast at [facility]23 x 24 x 12 mm lobulated enhancing mass posterior base of tongue, prominent adenoid tissue. No adenopathy.02/24/2024 x-ray neck at [facility] normal work - quality systems engineer, [employer] DOLORES CABRERA MD [address] [place] [address],[address], [address], [place] [facility] 04/08/2024 11:59:43
--- OUTSIDE RECORDS SUMMARY | 2024-08-05 09:43 | XMS_ITS | Clinical Summary ---
Author Organization [address] Address [address] [place] [phone] Phone Care Team Providers Care Business Consultant Name Role Phone Rashid Marin MD Primary [...] PM EST Hospital Encounter Radiology Department - [address] [phone] Lump in the testicle Discharge Disposition: Home or Self Care 07/02/2024 10:00 AM EST Office Visit Adult Medicine [address] [phone] Heidi Motley NP Epididymitis, right (Primary Dx); Lump in the testicle 07/02/2024 Telephone Adult [address] [phone] Rashid Marin MD provider call back from Last 3 Months Immunizations Name Administration Dates Next Due Tdap Tetanus diptheria acell ular pertussis (Boostrix; Adacel) 7yo and older 12/14/2013 Surgical History Surgery Date Site/Laterality Comments OTHER SURGICAL HISTORY 06/11/13 PROCEDURE: [place] UNLISTED PROCEDURE SPINE; COMMENT: L5-S1 disectomy Medical [...] Signed Date: 07/02/2024 11:43 ET Workstation ID: [id number] Transcribed By: Self Edit Transcribed Date: 07/02/2024 [...] Signed Date: 07/02/2024 11:43 ET Workstation ID: [id number] Transcribed By: Self Edit Transcribed Date: 07/02/2024 11:38 ET Heidi Motley ACCELERATOR OPERATOR IMG US PROCEDURES Final Resu lt * Depression Screening (07/05/2023) Pathologist [facility] Depression Screening abstracted Historical Provider HEALTH MAINTENANCE [...] Most Recently Relevant to Health Maintenance Insurance [facility] Care Teams Business Consultant Relationship Specialty Start Date End Date Rashid Marin MD [address] [place] [address] PCP - General 07/24/22
== END 2024-08-05 09:24 | disposition home or self-care (01) ==
PROVIDERS: Visit Provider Nurse Practitioner Psychiatric/Mental Health
DX: F11.21 Opioid dependence, in remission (principal)
CPT/HCPCS: 99213

== ENCOUNTER → 2024-08-05 08:54 | Outpatient (BNVA) | payer OTHER, SELFPAY | PROVIDERS: Visit Provider Nurse Practitioner Psychiatric/Mental Health ==

== ENCOUNTER 2024-08-28 12:50 | Outpatient (AMB) | payer OTHER, SELFPAY ==
[2024-08-28 12:59] VITALS: BP 124/80; PULSE 95; O2SAT 98; BMI 19.9
--- NOTE | 2024-08-28 12:59 | AM.OFFVISNUR ---
Vital Signs 08/28/24 12:59 Height 6 ft 2 in Weight 70.307 kg BMI 19.9 BP 124/80 Blood Pressure Location Lt brachial Position Sitting Pulse 95 Pulse Source Pulse Oximeter Pulse Oximetry (%) 98 Oxygen Delivery Method Room Air Intake Visit Reasons: Sublocade Injection Allergies No Known Allergies [No Known Allergies*] Allergy (Verified 08/28/24 12:59) Coding
--- NOTE | 2024-08-28 14:04 | AM.OFFVISNUR ---
Vital Signs 08/28/24 12:59 Height 6 ft 2 in Weight 70.307 kg BMI 19.9 BP 124/80 Blood Pressure Location Lt brachial Position Sitting Pulse 95 Pulse Source Pulse Oximeter Pulse Oximetry (%) 98 Oxygen Delivery Method Room Air Intake Visit Reasons: Sublocade Injection Allergies No Known Allergies [No Known Allergies*] Allergy (Verified 08/28/24 12:59) Nursing Note Juventino presented in office to receive his first Sulocade injection. Dosing questions were relayed to provider Maribell Norwood regarding equivalency of 100 mg injection dosage to 3 mg Suboxone and answered. Injection was given without event. Juventino was educated on signs and symptoms of infection and bridging his dose if necessary towards the next injection. Juventino remained in office for 15 minuted post injection to monitor for any adverse reaction, none were observed, he will follow up with the office with any questions or concerns. Office Meds Sublocade 300 mg/1.5 mL solution,extended release subcutaneous syringe Performing Provider: Maribell Norwood CNP Performing Location: [facility] Documented (not given) by: Cyn Laguna RN on 08/28/24 13:27 Reason Not Given: Not Medically Necessary Comments: Pt present for initial Sublocade injection. No issues with injection. Reviewed signs and symptoms of infection to observe for (pain, swelling, discharge, fever, redness),reminded to call the office with any further questions. Follow up in 4 weeks for next injection. Patient verbalized understanding. Remained in office for 15 minutes post injection to monitor for adverse reaction, none noted. Sublocade 100 mg/0.5 mL solution,extended release subcutaneous syringe Performing Provider: Maribell Norwood CNP Performing Location: [facility] Administered by: Cyn Laguna RN on 08/28/24 13:30 Dose Route Admin Location Dispensed Lot Number Expiration Date [facility] Content Checker 100 mg subcut RLQ 0.5 mL [id number] 09/07/25 [address]-6 [employer]. Comments: Pt present for initial Sublocade injection. No issues with injection. Reviewed signs and symptoms of infection to observe for (pain, swelling, discharge, fever, redness),reminded to call the office with any further questions. Follow up in 4 weeks for next injection. Patient verbalized understanding. Remained in office for 15 minutes post injection to monitor for adverse reaction, no adverse reaction noted. Assessment & Plan Assessment & Plan Orders: Orders AMB Buprenorphine Injection Today F1.21 - Opioid dependence, in remission AMB Buprenorphine Injection Today F1.21 - Opioid dependence, in remission Medications: New Sublocade ER (buprenorphine) 100 mg (0.5 mL) subcut ONCE 0.5 mL 0RF NS F1.21 - Opioid dependence, in remission Coding
== END 2024-08-28 13:53 | disposition home or self-care (01) ==
LOC: HO.HCC 12:50
DX: F11.21 Opioid dependence, in remission (principal)

== ENCOUNTER → 2024-08-28 12:50 | Outpatient (BNVA) | payer OTHER, SELFPAY | DX: F11.21 Opioid dependence, in remission (principal) | CPT/HCPCS: 96372; Q9991 ==

== ENCOUNTER 2024-09-23 12:39 | Outpatient (AMB) | payer OTHER, SELFPAY ==
--- NOTE | 2024-09-23 12:57 | AM.OFFVISNUR ---
Intake Visit Reasons: Sublocade Allergies No Known Allergies [No Known Allergies*] Allergy (Verified 08/28/24 12:59) Nursing Note Patient Presents for Sublocade Injection. Current Dose 100mg . Given in the LUQ with no noted or stated complications. Denies any issues with previous injection. Denies symptoms, and denies any break through cravings. Last injection was patients first, he states he would like to stretch his next injection 5 weeks and eventually get to 6 weeks. He understands to call the office if he needs the injection earlier. it help desk associate and [place] were alerted of this as well. Office Meds Sublocade 100 mg/0.5 mL solution,extended release subcutaneous syringe Performing Provider: Angeline Xiao MD Performing Location: [facility] Administered by: Orquidea Narvaez RN on 09/23/24 12:59 Dose Route Admin Location Dispensed Lot Number Expiration Date [facility] Button Attaching Machine Operator 100 mg subcut 0.5 mL [id number] 08/08/25 [address]-6 [email or web address]. Assessment & Plan Assessment & Plan Orders: Orders AMB Buprenorphine Injection - Patient Supplied Today F11.90 - Opioid use, unspecified, uncomplicated Medications: New Sublocade ER (buprenorphine) 100 mg (0.5 mL) subcut ONCE 0.5 mL 0RF NS F11.90 - Opioid use, unspecified, uncomplicated Coding
--- OUTSIDE RECORDS SUMMARY | 2024-09-23 14:58 | XMS_ITS | Clinical Summary ---
Author Organization [facility] [address] [place] [address] [place] [address] Phone Care Team Providers Care Neurology Epilepsy Physician Name Role Phone Rashid Marin MD Primary Care Provider Allergies Active Allergy Reactions Criticality Noted Date Comments Cyclobenzaprine Rash Medium 03/26/2014 Naproxen GI intolerance Medium 03/26/2014 Medications buprenorphine-na loxone (SUBOXONE) 4-[address] mg [address] under the tongue. Active Hospital, Clinic, or Other Facility Administered Medication Ordered Dose Route Frequency Start Date End Date Status cefTRIAXone (ROCEPHIN) injection 500 mgIndications:Epididymitis, right 500 mg IM Once 07/02/2024 10/30/2024 Active Active Problems Problem Noted Date Diagnosed Date Gastroesophageal reflux disease without esophagi tis 04/01/2019 Anxiety 02/16/2019 Opioid dependence ([facility] V24, [facility] V28) 12/2018 Overview (05/28/2024): Follow with Suboxone treatment program since 2018 Lumbar disc herniation 04/23/2014 Encounters Date Type Department Care Team Description 08/19/2024 8:15 AM EDT Office Visit Adult Medicine [address] [phone] Stevenson Naranjo PA Left upper quadrant abdominal pain (Primary Dx) 08/18/2024 Telephone Adult Medicine [address] [phone] Rashid Marin MD Heartburn; Spasms (Minor area chest and upper abdominal ) 07/02/2024 10:41 AM EST - 07/02/2024 11:59 PM EST Hospital Encounter Radiology Department - [address] [phone] Lump in the testicle Discharge Disposition: Home or Self Care 07/02/2024 10:00 AM EST Office Visit Adult Medicine [address] [phone] Heidi Motley NP Epididymitis, right (Primary Dx); Lump in the testicle 07/02/2024 Telephone Adult Medicine [address] [phone] Rashid Marin MD provider call back from Last 3 Months Immunizations Name Administration Dates Next Due Tdap Tetanus diptheria acell ular pertussis (Boostrix; Adacel) 7yo and older 12/14/2013 Surgical History Surgery Date Site/Laterality Comments OTHER SURGICAL HISTORY 06/11/13 PROCEDURE: [place] UNLISTED PROCEDURE SPINE; COMMENT: L5-S1 disectomy Medical [...] Sign Reading Time Taken Comments Blood Pressure 120/68 08/19/2024 8:18 AM EDT Pulse 88 08/19/2024 8:18 AM EDT Temperature 36.5 ??C (97.7 ??F) 08/19/2024 8:18 AM ED T Respiratory Rate 14 08/19/2024 8:18 AM EDT Oxygen Saturation 98% 08/19/2024 8:18 AM EDT Inhaled Oxygen Concentration - - Weight 72.6 kg (160 lb) 08/19/2024 8:18 AM EDT Height 188 cm (6' 2 ) 08/19/2024 8:18 AM EDT Body Mass Index 20.54 08/19/2024 8:18 AM EDT Plan of Treatment Health Maintenance Due Date Last Done Comments Hepatitis B Vaccines (1 of 3 - 19+ 3-dose series) 2007 Pneumococcal Vaccine: Pediatrics (0 to 5 Years) and At-Risk Patients (6 to 64 Years) (1 of 2 - PCV) 2007 HIV Screening 05/19/2022 Hepatitis C Screening 05/19/2022 Social Influencers of Health Screening 05/19/2022 DTaP,Tdap,and Td Vaccines (2 - Td or Tdap) 12/15/2023 12/14/2013 COVID-19 Vaccine (1 - 2023-2 5 season) 2024 Depression Screening 07/05/2024 07/05/2023 Influenza Vaccine (Season Ended) 2025 Cholesterol Screening (Lipid Panel) 08/19/2029 08/19/2024, 08/07/2022 HIB Vaccines Aged Out No longer [...] age to complete this topic Meningococcal B Vaccine Aged Out No l onger eligible based on patient's age to complete this topic RSV Immunization Patients Under 20 months Aged Out No longer eligible b ased on patient's age to complete this topic Varicella Vaccines Aged Out No longer eligible based on patient's age to complete this topic Procedures Procedure Name Priority Date/Time Associated Diagnosis Comments COMPLETE BLOOD COUNT Routine 08/19/2024 9:04 AM EDT Left upper quadrant abdominal pain COMPREHENSIVE METABOLIC PANEL Routine 08/19/2024 9:04 AM EDT Left upper quadrant abdominal pain THYROID STIMULATING HORMONE Routine 08/19/2024 9:04 AM EDT Left upper quadrant abdominal pain LIPID PANEL WITH REFLEX TO DIRECT LDL Routine 08/19/2024 9:04 AM EDT Left upper quadrant abdominal pain US SCROTUM AND CONTENTS Routine 07/02/2024 11:10 AM EST Lump in the testicle DEPRESSION SCREENING Routine 07/05/2023 from Last 3 Months or Most Recently Relevant to Health Maintenance Results * Lipid panel with reflex to direct LDL (08/19/2024 9:04 AM EDT) Cholesterol 100 0 - 200 mg/dL LAB CHEMISTRY METHOD 08/19/2024 1:01 PM [facility] Triglycerides 67 0 - 150 mg/dL LAB CHEMISTRY METHOD 08/19/2024 1:01 PM [facility] HDL 44 >=40 mg/dL LAB CHEMISTRY METHOD 08/19/2024 1:01 PM [facility] LDL Calculated 43 0 - 100 mg/dL LAB CHEMISTRY METHOD 08/19/2024 1:01 PM [facility] VLDL Cholesterol Nilo 13.4 mg/dL LAB CHEMISTRY METHOD 08/19/2024 1:01 PM [facility] Non HDL Chol. (LDL+VLDL) 56 <145 mg/dL LAB CHEMISTRY METHOD 08/19/2024 1:01 PM [facility] Chol/HDL Ratio 2.3 0.0 - 4.4 LAB CHEMISTRY METHOD 08/19/2024 1:01 PM [facility] Blood Venous blood specimen / Unknown Venipuncture / Unknown 08/19/2024 9:04 AM EDT 08/19/2024 9:04 AM EDT us Stevenson DELGADO LAB BLOOD ORDERABLES Fin al Result [facility] [address] [place] [address], * Complete blood count (08/19/2024 9:04 AM EDT) [facility] WBC 5.3 4.8 - 10.8 K/mcL LAB HEMETOLOGY METHOD [facility]/19[facility]24 [facility] RBC 5.50 4.50 - 5.50 M/mcL LAB HEMETOLOGY METHOD 08/19/2024 10:02 AM [facility] Hemoglobin 16.2 13.5 - 17.5 g/dL LAB HEMETOLOGY METHOD 08/19/2024 10:02 AM [facility] Hematocrit 47.0 42.0 - 54.0 % LAB HEMETOLOGY METHOD 08/19/2024 10:02 AM [facility] MCV 86.2 79.0 - 98.0 FL LAB HEMETOLOGY METHOD 08/19/2024 10:02 AM [facility] MCH 29.7 27.0 - 32.0 pcg LAB HEMETOLOGY METHOD 08/19/2024 10:02 AM [facility] MCHC 34.5 32.0 - 37.0 g/dL LAB HEMETOLOGY METHOD 08/19/2024 10:02 AM [facility] RDW 13.2 11.0 - 15.0 % LAB HEMETOLOGY METHOD 08/19/2024 10:02 AM [facility] Platelets 230 130 - 400 K/mcL LAB HEMETOLOGY METHOD 08/19/2024 10:02 AM EDT [facility] MPV 9.2 7.0 - 11.0 FL LAB HEMETOLOGY METHOD 08/19/2024 10:02 AM EDT [facility] NRBC 0.0 <1.0 % LAB HEMETOLOGY METHOD 08/19/2024 10:02 AM EDT [facility] NRBC Absolute 0.00 <0.10 K/mcL LAB HEMETOLOGY METHOD 08/19/2024 10:02 AM EDT [facility] Blood Venous blood specimen / Unknown Venipuncture / Unknown 08/19/2024 9:04 AM EDT 08/19/2024 9:04 AM EDT Stevenson DELGADO LAB BLOOD ORDERABLES Fin al Result Performing Organization Address City/[facility]/ZIP Co de Phone Number [facility] [address] [place] [address], [place] [phone] * Thyroid stimulating hormone (08/19/2024 9:04 AM EDT) TSH 0.87 0.40 - 4.00 mcIU/mL LAB CHEMISTRY METHOD 08/19/2024 9:07 PM EDT [facility] Blood Venous blood specimen / Unknown Venipuncture / Unknown 08/19/2024 9:04 AM EDT 08/19/2024 9:04 AM EDT Stevenson DELGADO LAB BLOOD ORDERABLES Fin al Result [facility] [address] [place] [address], [place] [phone] * Comprehensive metabolic panel (08/19/2024 9:04 AM EDT) Sodium 139 133 - 145 mmol/L LAB CHEMISTRY METHOD 08/19/2024 1:01 PM EDT [facility] Potassium 4.5 3.5 - 5.5 mmol/L LAB CHEMISTRY METHOD 08/19/2024 1:01 PM [facility] Chloride 104 96 - 110 mmol/L LAB CHEMISTRY METHOD 08/19/2024 1:01 PM [facility] CO2 31 21 - 32 mmol/L LAB CHEMISTRY METHOD 08/19/2024 1:01 PM [facility] Anion Gap 4 3 - 11 LAB CHEMISTRY METHOD 08/19/2024 1:01 PM [facility] Glucose 92 70 - 100 mg/dL LAB CHEMISTRY METHOD 08/19/2024 1:01 PM [facility] BUN 12 5 - 25 mg/dL LAB CHEMISTRY METHOD 08/19/2024 1:01 PM [facility] Creatinine 0.78 0.70 - 1.30 mg/dL LAB CHEMISTRY METHOD 08/19/2024 1:01 PM [facility] eGFR 119 >=60 mL/min/1. 73m2 LAB CHEMISTRY METHOD 08/19/2024 1:01 PM [facility] Comment:Calculation based on the??Chronic Kidney Disease Epidemiology Collaboration (CKD-EPI) equation refit??without adjustment for race. BUN/Creatinine Ratio 15.4 LAB CHEMISTRY METHOD 08/19/2024 1:01 PM [facility] Calcium 9.4 8.5 - 10.5 mg/dL LAB CHEMISTRY METHOD 08/19/2024 1:01 PM [facility] AST (SGOT) 22 10 - 42 unit/L LAB CHEMISTRY METHOD 08/19/2024 1:01 PM [facility] ALT (SGPT) 32 10 - 60 unit/L LAB CHEMISTRY METHOD 08/19/2024 1:01 PM [facility] Alkaline Phosphatase 72 42 - 121 unit/L LAB CHEMISTRY METHOD 08/19/2024 1:01 PM [facility] Total Protein 7.2 6.0 - 8.0 g/dL LAB CHEMISTRY METHOD 08/19/2024 1:01 PM EDT [facility] Albumin 4.2 3.2 - 5.0 g/dL LAB CHEMISTRY METHOD 08/19/2024 1:01 PM EDT [facility] Total Bilirubin 0.8 0.0 - 1.4 mg/dL LAB CHEMISTRY METHOD 08/19/2024 1:01 PM EDT [facility] Blood Venous blood specimen / Unknown Venipuncture / Unknown 08/19/2024 9:04 AM EDT 08/19/2024 9:04 AM EDT us Stevenson DELGADO LAB BLOOD ORDERABLES Fin al Result [facility] [address] [place] [address], [place] [phone] * [place] Scrotum and Contents (07/02/2024 11:10 [...] Signed Date: 07/02/2024 11:43 ET Workstation ID: [id number] Transcribed By: Self Edit Transcribed Date: 07/02/2024 [...] Signed Date: 07/02/2024 11:43 ET Workstation ID: [id number] Transcribed By: Self Edit Transcribed Date: 07/02/2024 11:38 ET Heidi Motley NP IMG US PROCEDURES Final Resu lt * Depression Screening (07/05/2023) [facility] Depression Screening abstracted Historical Provider HEALTH MAINTENANCE Final Result from Last 3 Months or Most Recently Relevant to Health Maintenance Insurance [facility] [employer] Care Teams Neurology Epilepsy Physician Relationship Specialty Start Date End Date Rashid Marin MD [address] [place] [address] PCP - General 07/24/22
== END 2024-09-23 12:55 | disposition home or self-care (01) ==
LOC: HO.HCC 12:39
DX: F11.90 Opioid use, unspecified, uncomplicated (principal)

== ENCOUNTER → 2024-09-23 12:39 | Outpatient (BNVA) | payer OTHER, SELFPAY | DX: F11.90 Opioid use, unspecified, uncomplicated (principal) | CPT/HCPCS: 96372; Q9992 ==